=== PATIENT | female | born 1965 | race Caucasian/White ===

== ENCOUNTER 2017-09-05 11:52 | Emergency (ER) | payer MEDICAID ==
[~2017-09-05] VITALS: Wt 54.4 kg
[~2017-09-05 11:52] MED LIST: ALBUTEROL0.09 MG/A2 INH; CEFUROXIME AXE250 MG PO; HYDROCODONE BIT1 T11 PO; NAPROSYN EC375 MG PO; NO DOLO50 MG/ML; PYRIDIUM100 MG PO; VALIUM10 MG PO
[2017-09-05] MEDS ORDERED: PREDNISONE10 MG PO (12:28)
[2017-09-05] MEDS ORDERED: 'PARAFON FORTE500 M1 PO (12:28)
== END 2017-09-05 14:00 | disposition home or self-care (01) ==
LOC: ED 11:52
DX: M54.41 Lumbago with sciatica, right side (principal); R03.0 Elevated blood-pressure reading, without diagnosis of hypertension; F17.200 Nicotine dependence, unspecified, uncomplicated; Z88.6 Allergy status to analgesic agent

== ENCOUNTER 2017-09-14 08:56 | Emergency (ER) | payer MEDICAID ==
[~2017-09-14] VITALS: Ht 175.2 cm; Wt 61.0 kg
[~2017-09-14 08:56] MED LIST changes: +'PARAFON FORTE500 M1 PO; +PREDNISONE10 MG PO
[2017-09-14] MEDS ORDERED: CYCLOBENZAPRINE10 MG PO (09:19)
== END 2017-09-14 09:52 | disposition home or self-care (01) ==
LOC: ED 08:56
DX: G89.29 Other chronic pain (principal); M54.5 Low back pain; F17.200 Nicotine dependence, unspecified, uncomplicated; Z88.6 Allergy status to analgesic agent

== ENCOUNTER 2018-02-04 12:31 | Emergency (ER) | payer MEDICAID ==
[~2018-02-04] VITALS: Ht 175.2 cm; Wt 60.8 kg
[~2018-02-04 12:31] MED LIST changes: +CYCLOBENZAPRINE10 MG PO
[2018-02-04 14:43] LABS: BASO % 0.7 % (0.0-1.0); EOS % 0.2 % (1.0-4.0); HEMOGLOBIN 16.4 g/dl (12.0-16.0); LYMPH # 1.5 10*3/uL (1.3-4.4); LYMPH % 27.4 % (27.0-41.0); MEAN CELL VOLUME 90.7 fl (81.0-99.0); MEAN CORPUSCULAR HGB CONC 34.2 g/dl (33.0-37.0); MONO # 0.5 10*3/uL (0.1-1.0); MONO % 8.4 % (3.0-9.0); NEUT # 3.5 10*3/uL (2.3-7.9); NEUT % 63.1 % (47.0-73.0); PLATELET COUNT AUTOMATED 143 10*3/uL (130-400); RED BLOOD COUNT 5.29 10*6/uL (4.10-5.10); RED CELL DISTRI WIDTH 12.9 % (0-14.5); WHITE BLOOD COUNT 5.5 10*3/uL (4.8-10.8)
[2018-02-04 14:57] LABS: ALBUMIN 3.7 gm/dl (3.1-4.5); CREATININE 1.39 mg/dL (0.55-1.02); POTASSIUM 4.9 mmol/L (3.5-5.1)
[2018-02-04] MEDS ORDERED: TESSALON PERLE100 M1 PO (15:52)
[2018-02-04] MEDS ORDERED: TAMIFLU 75MG CA75 MG PO (15:52)
== END 2018-02-04 15:40 | disposition home or self-care (01) ==
LOC: ED 12:31
PROVIDERS: Emergency Medicine
DX: J10.1 Influenza due to other identified influenza virus with other respiratory manifestations (principal); F17.210 Nicotine dependence, cigarettes, uncomplicated; Z88.6 Allergy status to analgesic agent